=== PATIENT | male | born 1990 | race Asian ===

== ENCOUNTER 2024-01-14 20:40 | Outpatient (CLI) | payer OTHER | END 2024-01-14 20:41 | disposition home or self-care (01) | LOC: SC 20:40 | PROVIDERS: ATTEND Internal Medicine Pulmonary Disease | DX: G47.33 Obstructive sleep apnea (adult) (pediatric) (principal) | CPT/HCPCS: 95810 ==

== ENCOUNTER 2024-01-24 20:21 | Outpatient (CLI) | payer OTHER | END 2024-01-24 20:22 | disposition home or self-care (01) | LOC: SC 20:21 | PROVIDERS: ATTEND Internal Medicine Pulmonary Disease | DX: G47.33 Obstructive sleep apnea (adult) (pediatric) (principal) | CPT/HCPCS: 95811 ==

== ENCOUNTER 2024-02-05 15:04 | Outpatient (CLI) | payer OTHER ==
--- NOTE | 2024-02-05 16:02 | SLEEP CARE CONSULTATION ---
Information from patient questionnaire entered by Saeid Ibarra. I have reviewed and concur with the information entered by Saeid Ibarra. This document represents the service I personally performed and the decisions made by me, Tonny Cavanaugh MD, [facility]. History of Present Illness Service Date and Time: 02/05/2024 1504 Initial [place] Sleepiness Scale score: 16 (12/18/23) Current [place] Sleepiness Scale score: 17 (02/05/24) Additional HPI information: Mr. Aldana returned for follow up of the in-laboratory polysomnography and manual CPAP/BiPAP titration study recently performed. The polysomnography showed that the patient had slightly reduced sleep efficiency due to a few awakenings during the night. The sleep architecture was abnormal for sleep fragmentation and reduced amount of time spent in REM and slow wave sleep (N3). Respiratory monitoring showed moderate obstructive sleep apnea-hypopnea (AHI = 23.9) associated with frequent arousals, oxyhemoglobin desaturation and mild hypoxia (tito oxygen saturation of 82%). The respiratory events occurred predominantly during supine sleep (supine AHI = 41.7; non-supine = 8.05). Snore was moderate to loud in intensity. There was no significant periodic leg movement of sleep. Cardiac rhythm was normal sinus rhythm without significant arrhythmia. No abnormal behavior (parasomnia) observed during the night. The manual CPAP/BiPAP titration study showed that CPAP was initiated at 6 cmH2O and titrated up to CPAP at 12 cmH2O. CPAP at 10 cmH2O appeared to be optimal (AHI of 0 per hour on the pressure). There was supine REM sleep on the pressure. Oxygen saturation was normal throughout the night. Lower CPAP settings appeared adequate as well. The patient appeared to have tolerated positive airway pressure therapy fairly well using a full face mask. The patients sleep efficiency was slightly reduced due to prolonged awakening in the first half of the night. The sleep architecture was normal. There was no significant periodic leg movement of sleep. Cardiac rhythm was normal sinus rhythm without significant arrhythmia. No abnormal behavior (parasomnia) observed during the night. The patient was informed of these findings. I explained to him the pathophysiology behind obstructive sleep apnea. We then spent quite a bit of time discussing different treatment options. For mild obstructive sleep apnea, surgery and oral appliance are alternatives to nasal CPAP therapy but in moderate or severe cases, nasal CPAP is the most effective and reliable treatment. Weight loss in an obese individual is strongly recommended. After some discussion, he opted to go with the nasal CPAP therapy. I explained to him how CPAP machine works and what to expect when using the machine. He is encouraged to use CPAP every night especially in the first 2 to 3 nights in order to get used to it. Sleep Study - Results Type of Sleep Study: Polysomnography (TITRATION F/U COMPLETED 01/24/24) Prior sleep studies: No Allergies and Home Medications Drug allergies reviewed: Yes Home medication list reviewed: Yes Allergy and home medication list: Allergies No Known Drug Allergies Allergy (Verified 12/25/23 10:33) Review of Systems Review of systems same as previous: Yes (NO CHANGE) Physical Exam Vital signs obtained and entered by: SAEID Vivas MA Blood Pressure: 138/89 (LEFT ARM) Heart Rate: 75 O2 Saturation: 6 Height: 5 ft 9 in Weight: 226 lb 6.4 oz Body Mass Index: 33.4 BMI Classification: Obese Impression and Plan IMPRESSION: 1. Obstructive Sleep Apnea-Hypopnea Syndrome, moderate, associated with mild hypoxemia and sleep fragmentation. Most likely, this is the cause of the patients symptoms of unrefreshed sleep, and excessive daytime sleepiness. As mentioned above, the patient will be started on an autoCPAP set between 8 and 12 cmH2O. I anticipate good treatment compliance. PLAN: 1. Prescription made for an autoCPAP, heated humidifier, and related supplies. 2. Attempt to lose weight and avoid alcohol consumption near bedtime. 3. The patient is again cautioned about driving until his sleepiness completely resolves on the CPAP therapy. 4. Return in one month for follow up. I will assess his response and compliance at that time. Counseling Topics: Weight control Prescriptions: Auto CPAP Follow up with Sleep Care in: 1-2 months Follow up recommended for: Weight management Visit Type: In Office Time Spent with Patient (minutes): 15 Provider Statement: I spent 100% of the Face to Face Visit with the patient with greater than 50% spent counseling the patient and coordination of care.
[2024-02-05 16:12] VITALS: BP 138/89; O2SAT 6
== END 2024-02-05 15:05 | disposition home or self-care (01) ==
LOC: SC 15:04
PROVIDERS: ATTEND Internal Medicine Pulmonary Disease
DX: G47.33 Obstructive sleep apnea (adult) (pediatric) (principal)
CPT/HCPCS: 99212